=== PATIENT | male | born 1950 | race Caucasian/White ===

== ENCOUNTER 2018-12-31 08:34 | Outpatient (CLI) | payer BC ==
[2018-12-31 09:14] LABS: Estimated GFR-MDRD - POC Greater than 90
[2018-12-31] MEDS ORDERED: Gadobenate Dimeglumine 529 MG/1 ML (20ML VIAL) ONE (11:43)
--- NOTE | 2018-12-31 12:35 | MRI ---
PROSTATE MRI WITHOUT AND WITH CONTRAST: COMPARISON: None. HISTORY: Prostate cancer status post biopsy 1 year ago. TECHNIQUE: Multiplanar, multisequence MR images were obtained of the prostate without and with IV contrast. FINDINGS: There is moderate hypertrophy of the central gland consistent with BPH. No low T2 signal lesion is s een within the prostate. There may be a small central defect in the prostate which could be from gilda or transurethral resection of the prostate. No restricted diffusion or low signal is seen on the ADC map within the peripheral zone of the prosta te. The seminal vesicles are intact. Neurovascular bundles are intact. No pelvic adenopathy is see n. No marrow signal abnormality is present. IMPRESSION: PIRADS category 2 - low likelihood that a clinically significant cancer is present. POS: NIDHI
== END 2018-12-31 08:35 | disposition home or self-care (01) ==
LOC: TBSIIMAG 08:34
PROVIDERS: ATTEND Urology
DX: C61 Malignant neoplasm of prostate (principal)
CPT/HCPCS: 72197; 82565; A9577

== ENCOUNTER 2023-05-11 22:37 | Emergency (ER) | payer BC ==
[2023-05-11 23:09] LABS: #Basophils 0.1 thou/uL (0.0-0.2); #Eosinphils 0.6 thou/uL (0.0-0.7); #Monocytes 0.9 thou/uL (0.11-0.59); #Neutrophils 4.5 thou/uL (1.40-6.50); %Basophils 0.7 % (0.0-1.0); %Eosinophils 7.2 % (0.0-10.0); %Lymphocytes 29.8 % (21.0-51.0); %Monocytes 10.2 % (0.0-10.0); %Neutrophils 51.6 % (42.0-75.0); Hematocrit 47.6 % (42.0-52.0); Hemoglobin 16.2 g/dL (14.0-18.0); Mean Corpuscular Hemoglobin 32.6 pg (27.0-31.0); Mean Corpuscular Volume 95.8 fl (78.0-98.0); Mean Platelet Volume 8.5 fL (7.4-10.4); Platelet Count 203 10x3/uL (130-400); Red Blood Cell (RBC) Count 4.97 mill/uL (4.70-6.10); White Blood Cell (WBC) Count 8.7 10x3/uL (4.8-10.8)
[2023-05-11 23:32] LABS: ALT (SGPT) 27 U/L (8-55); AST (SGOT) 25 U/L (5-34); Albumin 4.3 g/dL (3.4-4.8); Alkaline Phosphatase 67 U/L (40-110); Anion Gap 15 mmol/L (10-20); BUN (Urea Nitrogen) 14 mg/dL (8.4-25.7); Bilirubin, Total 0.4 mg/dL (0.2-1.2); Calc. Creatinine Clearance 0 mL/min (70-130); Calcium 9.8 mg/dL (7.8-10.44); Carbon Dioxide 24 mmol/L (23-31); Chloride 107 mmol/L (98-107); Estimated GFR 91; Glucose 113 mg/dL (83-110); Potassium 4.1 mmol/L (3.5-5.1); Protein, Total 7.3 g/dL (5.8-8.1); Sodium 142 mmol/L (136-145)
[2023-05-12 01:25] LABS: Bacteria/HPF None Seen HPF (None Seen); Bilirubin Negative (Negative); Blood, Urine 1+ (Negative); CAUTI Indications for Culture Pelvic or flank pain; Clarity Clear (Clear); Glucose, Urine (Dipstick) Normal (Negative); Ketone, Urine Negative (Negative); Leukocyte Negative Leu/uL (Negative); Nitrite Negative (Negative); Protein, Urine (Dipstick) Negative (Neg-Trace); Squamous Epithelial None Seen HPF (0-3); Urobilinogen Normal mg/dL (Less than 2); pH, Urine 6.5 (5.0-9.0)
[2023-05-12 01:26] LABS: Urine Culture Reflex No No
== END 2023-05-12 01:48 | disposition home or self-care (01) ==
LOC: ERS 22:37
DX: N13.2 Hydronephrosis with renal and ureteral calculous obstruction (principal); I10 Essential (primary) hypertension
CPT/HCPCS: 36415; 74176; 80053; 81001; 85025

== ENCOUNTER 2023-05-14 09:05 | Outpatient (CLI) | payer BC ==
[2023-05-14 10:38] LABS: INR-International Normal Ratio 1.2; PTT 29.2 sec (22.0-33.0); Prothrombin Time 12.5 sec (9.5-12.1)
[2023-05-14 12:21] LABS: Platelet Count 206 thou/uL (130-400)
[2023-05-14 12:58] LABS: EPI 138 sec (67-192)
== END 2023-05-14 09:06 | disposition home or self-care (01) ==
LOC: LABBT 09:05
PROVIDERS: ATTEND Urology
DX: Z01.812 Encounter for preprocedural laboratory examination (principal); N20.0 Calculus of kidney
CPT/HCPCS: 85576; 85610; 85730

== ENCOUNTER 2023-05-20 11:28 | Inpatient (IN) | payer MEDICARE, BC ==
[2023-05-20] MEDS ORDERED: fentaNYL PF 100 MCG/2 ML SYRINGE ONE ×2 (13:08→15:45)
[2023-05-20] MEDS ORDERED: Sodium Chloride 0.9% 100 ML ONE (13:16)
[2023-05-20] MEDS ORDERED: CEFAZOLIN 2 GM VIAL ONE (13:16)
[2023-05-20] MEDS ORDERED: Ondansetron PF 4 MG/2 ML Vial ONE (13:37)
[2023-05-20] MEDS ORDERED: Lidocaine 1% PF 5 ML VIAL ONE (13:37)
[2023-05-20] MEDS ORDERED: Dexamethasone 20 MG/5 ML VIAL ONE (13:37)
[2023-05-20] MEDS ORDERED: PROPOFOL 200 MG/20 ML VIAL ONE (13:37)
[2023-05-20] MEDS ORDERED: Iopamidol 30 ML ONE (14:36)
[2023-05-20] MEDS ORDERED: fentaNYL 50 mcg/mL 1 mL Vial ONE ×6 (15:23→19:38)
[2023-05-20] MEDS ORDERED: Hyoscyamine SL 0.125 MG TAB ONE (17:02)
[2023-05-20 17:32] LABS: #Eosinphils 0.1 thou/uL (0.0-0.7); #Monocytes 0.3 thou/uL (0.11-0.59); #Neutrophils 5.7 thou/uL (1.40-6.50); %Basophils 0.5 % (0.0-1.0); %Eosinophils 0.9 % (0.0-10.0); %Lymphocytes 17.5 % (21.0-51.0); %Monocytes 3.8 % (0.0-10.0); %Neutrophils 76.6 % (42.0-75.0); Hematocrit 45.1 % (42.0-52.0); Hemoglobin 15.2 g/dL (14.0-18.0); Mean Corpuscular HGB CONC 33.7 g/dL (32.0-36.0); Mean Corpuscular Hemoglobin 32.5 pg (27.0-31.0); Mean Corpuscular Volume 96.6 fl (78.0-98.0); Mean Platelet Volume 8.4 fL (7.4-10.4); Platelet Count 175 10x3/uL (130-400); RBC Distribution Width 11.9 % (11.5-14.5); Red Blood Cell (RBC) Count 4.67 mill/uL (4.70-6.10); White Blood Cell (WBC) Count 7.4 10x3/uL (4.8-10.8)
[2023-05-20 17:49] LABS: INR-International Normal Ratio 1.3; PTT 27.1 sec (22.9-36.1); Prothrombin Time 16.7 sec (12.0-14.7)
[2023-05-20] MEDS ORDERED: D5 1/2 NS w/20 mEq KCL 1,000 ML ONE (18:47)
[2023-05-20 20:52] VITALS: BMI 26.9
[2023-05-20] MEDS ORDERED: Losartan 25 MG TAB PO SCH (21:00)
[2023-05-20] MEDS: Docusate 100 MG CAP PO SCH (21:03)
[2023-05-20] MEDS: Hyoscyamine SL 0.125 MG TAB SL PRN (21:04)
[2023-05-20] MEDS: Acetaminophen 500 MG TAB PO PRN (21:04)
[2023-05-20] MEDS: D5 1/2 NS w/20 mEq KCL 1,000 ML IV SCH (21:07)
[2023-05-20] MEDS: CEFAZOLIN 1 GM in Sodium Chloride 0.9% 100 ML IVPB SCH (21:13)
[2023-05-20] MEDS: Morphine 4 MG/ML VIAL SLOW IVP PRN (22:34)
[2023-05-21] MEDS: D5 1/2 NS w/20 mEq KCL 1,000 ML IV SCH ×2 (04:42→14:04)
[2023-05-21] MEDS: CEFAZOLIN 1 GM in Sodium Chloride 0.9% 100 ML IVPB SCH ×3 (04:44→20:51)
[2023-05-21] MEDS: Acetaminophen 500 MG TAB PO PRN ×2 (04:53→20:51)
[2023-05-21] MEDS: Morphine 4 MG/ML VIAL SLOW IVP PRN (04:55)
[2023-05-21] MEDS ORDERED: Losartan 25 MG TAB PO SCH (08:17)
[2023-05-21 08:28] LABS: #Monocytes 1.1 thou/uL (0.11-0.59); #Neutrophils 13.8 thou/uL (1.40-6.50); %Basophils 0.1 % (0.0-1.0); %Lymphocytes 6.4 % (21.0-51.0); %Neutrophils 85.7 % (42.0-75.0); Hematocrit 37.2 % (42.0-52.0); Hemoglobin 12.6 g/dL (14.0-18.0); Mean Corpuscular HGB CONC 33.9 g/dL (32.0-36.0); Mean Corpuscular Volume 97.4 fl (78.0-98.0); Mean Platelet Volume 8.7 fL (7.4-10.4); Platelet Count 183 10x3/uL (130-400); RBC Distribution Width 11.9 % (11.5-14.5); Red Blood Cell (RBC) Count 3.82 mill/uL (4.70-6.10); White Blood Cell (WBC) Count 16.1 10x3/uL (4.8-10.8)
[2023-05-21 08:55] LABS: Anion Gap 11 mmol/L (10-20); BUN (Urea Nitrogen) 15 mg/dL (8.4-25.7); Calc. Creatinine Clearance 96 mL/min (70-130); Calcium 8.5 mg/dL (7.8-10.44); Carbon Dioxide 25 mmol/L (23-31); Chloride 107 mmol/L (98-107); Estimated GFR 92; Glucose 140 mg/dL (83-110); Magnesium 1.9 mg/dL (1.6-2.6); Potassium 4.8 mmol/L (3.5-5.1); Sodium 138 mmol/L (136-145)
[2023-05-21] MEDS: Docusate 100 MG CAP PO SCH ×2 (09:10→20:51)
[2023-05-21] MEDS: Loratadine 10 MG TAB PO SCH (09:10)
[2023-05-21] MEDS: Finasteride 5 MG TAB PO SCH (09:10)
[2023-05-21 15:45] LABS: Hemoglobin 12.9 g/dL (14.0-18.0)
[2023-05-22] MEDS: D5 1/2 NS w/20 mEq KCL 1,000 ML IV SCH (02:06)
[2023-05-22] MEDS: Morphine 4 MG/ML VIAL SLOW IVP PRN (03:47)
[2023-05-22 05:56] LABS: Hematocrit 36.3 % (42.0-52.0); Mean Corpuscular HGB CONC 33.1 g/dL (32.0-36.0); Mean Corpuscular Hemoglobin 32.3 pg (27.0-31.0); Mean Corpuscular Volume 97.6 fl (78.0-98.0); Mean Platelet Volume 8.9 fL (7.4-10.4); Platelet Count 171 10x3/uL (130-400); Red Blood Cell (RBC) Count 3.72 mill/uL (4.70-6.10); White Blood Cell (WBC) Count 13.1 10x3/uL (4.8-10.8)
[2023-05-22] MEDS: CEFAZOLIN 1 GM in Sodium Chloride 0.9% 100 ML IVPB SCH ×2 (06:19→14:20)
[2023-05-22] MEDS: Hyoscyamine SL 0.125 MG TAB SL PRN (06:23)
[2023-05-22] MEDS: Loratadine 10 MG TAB PO SCH (09:19)
[2023-05-22] MEDS: Docusate 100 MG CAP PO SCH ×2 (09:19→21:24)
[2023-05-22] MEDS: Finasteride 5 MG TAB PO SCH (09:19)
[2023-05-22] MEDS: Losartan 25 MG TAB PO SCH (09:21)
[2023-05-22 09:49] LABS: Anion Gap 13 mmol/L (10-20); BUN (Urea Nitrogen) 13 mg/dL (8.4-25.7); Calc. Creatinine Clearance 98 mL/min (70-130); Calcium 8.9 mg/dL (7.8-10.44); Carbon Dioxide 24 mmol/L (23-31); Chloride 108 mmol/L (98-107); Estimated GFR 92; Glucose 130 mg/dL (83-110); Potassium 4.4 mmol/L (3.5-5.1); Sodium 141 mmol/L (136-145)
[2023-05-22] MEDS ORDERED: Acetaminophen/Codeine 30-300mg Tablet PO PRN (13:05)
[2023-05-22] MEDS ORDERED: Iopamidol-370 76% 500 ML MDV (1 ML CHARGE) ONE (13:21)
[2023-05-22 15:06] LABS: Platelet Count 177 thou/uL (130-400)
[2023-05-22 15:27] LABS: EPI 134 sec (67-192)
[2023-05-22] MEDS: Acetaminophen/Codeine 30-300mg Tablet PO PRN (21:24)
[2023-05-23] MEDS: Acetaminophen/Codeine 30-300mg Tablet PO PRN ×3 (03:37→21:12)
[2023-05-23] MEDS: LevoFLOXacin 500 MG TAB PO SCH (05:31)
[2023-05-23 05:32] LABS: #Eosinphils 0.2 thou/uL (0.0-0.7); #Monocytes 0.9 thou/uL (0.11-0.59); %Basophils 0.4 % (0.0-1.0); %Eosinophils 2.2 % (0.0-10.0); %Lymphocytes 18.3 % (21.0-51.0); %Monocytes 9.3 % (0.0-10.0); %Neutrophils 69.2 % (42.0-75.0); Hematocrit 34.9 % (42.0-52.0); Hemoglobin 11.8 g/dL (14.0-18.0); Mean Corpuscular HGB CONC 33.8 g/dL (32.0-36.0); Mean Corpuscular Hemoglobin 32.5 pg (27.0-31.0); Mean Corpuscular Volume 96.1 fl (78.0-98.0); Mean Platelet Volume 8.8 fL (7.4-10.4); Platelet Count 176 10x3/uL (130-400); RBC Distribution Width 11.9 % (11.5-14.5); Red Blood Cell (RBC) Count 3.63 mill/uL (4.70-6.10); White Blood Cell (WBC) Count 10.1 10x3/uL (4.8-10.8)
[2023-05-23 06:02] LABS: ALT (SGPT) 15 U/L (8-55); AST (SGOT) 17 U/L (5-34); Albumin 3.8 g/dL (3.4-4.8); Alkaline Phosphatase 48 U/L (40-110); Anion Gap 12 mmol/L (10-20); BUN (Urea Nitrogen) 14 mg/dL (8.4-25.7); Bilirubin, Total 0.8 mg/dL (0.2-1.2); Calc. Creatinine Clearance 107 mL/min (70-130); Calcium 8.9 mg/dL (7.8-10.44); Carbon Dioxide 25 mmol/L (23-31); Chloride 109 mmol/L (98-107); Estimated GFR 95; Globulin 2.1 g/dL (2.4-3.5); Glucose 95 mg/dL (83-110); Potassium 3.9 mmol/L (3.5-5.1); Protein, Total 5.9 g/dL (5.8-8.1); Sodium 142 mmol/L (136-145)
[2023-05-23] MEDS: Docusate 100 MG CAP PO SCH ×2 (09:20→21:12)
[2023-05-23] MEDS: Loratadine 10 MG TAB PO SCH (09:20)
[2023-05-23] MEDS: Finasteride 5 MG TAB PO SCH (09:20)
[2023-05-23] MEDS: Losartan 25 MG TAB PO SCH (09:21)
[2023-05-23] MEDS ORDERED: Docusate 100 MG CAP PO PRN (11:04)
[2023-05-23] MEDS ORDERED: Polyethylene Glycol 3350 17 GM Packet PO PRN (11:04)
[2023-05-24] MEDS: LevoFLOXacin 500 MG TAB PO SCH (05:37)
[2023-05-24] MEDS: Acetaminophen/Codeine 30-300mg Tablet PO PRN ×3 (05:41→20:59)
[2023-05-24 06:31] LABS: Hematocrit 34.7 % (42.0-52.0); Hemoglobin 11.6 g/dL (14.0-18.0); Mean Corpuscular HGB CONC 33.4 g/dL (32.0-36.0); Mean Corpuscular Hemoglobin 32.2 pg (27.0-31.0); Mean Corpuscular Volume 96.4 fl (78.0-98.0); Mean Platelet Volume 8.9 fL (7.4-10.4); Platelet Count 186 10x3/uL (130-400); RBC Distribution Width 11.9 % (11.5-14.5); White Blood Cell (WBC) Count 10.3 10x3/uL (4.8-10.8)
[2023-05-24] MEDS: Docusate 100 MG CAP PO SCH ×2 (08:24→20:55)
[2023-05-24] MEDS: Finasteride 5 MG TAB PO SCH (08:24)
[2023-05-24] MEDS: Loratadine 10 MG TAB PO SCH (08:24)
[2023-05-24] MEDS: Losartan 25 MG TAB PO SCH (08:55)
[2023-05-25] MEDS: LevoFLOXacin 500 MG TAB PO SCH (06:06)
[2023-05-25] MEDS: Losartan 25 MG TAB PO SCH (08:44)
[2023-05-25] MEDS: Finasteride 5 MG TAB PO SCH (08:44)
[2023-05-25] MEDS: Docusate 100 MG CAP PO SCH (08:44)
[2023-05-25] MEDS: Loratadine 10 MG TAB PO SCH (08:44)
[2023-05-25 12:47] VITALS: TEMP 98.5
[2023-05-25 16:09] VITALS: BP 120/70
== END 2023-05-25 16:44 | disposition home or self-care (01) | DRG 660 ==
LOC: SDC 11:28 → SURG B 16:38
PROVIDERS: ADMIT Urology; ATTEND Urology
PROC: 0TF7XZZ Fragmentation in Left Ureter, External Approach (ICD-10-PCS; principal; 2023-05-20)
PROC: 0T778DZ Dilation of Left Ureter with Intraluminal Device, Via Natural or Artificial Opening Endoscopic (ICD-10-PCS; 2023-05-20)
PROC: 0V508ZZ Destruction of Prostate, Via Natural or Artificial Opening Endoscopic (ICD-10-PCS; 2023-05-20)
DX: N20.2 Calculus of kidney with calculus of ureter (principal); N99.61 Intraoperative hemorrhage and hematoma of a genitourinary system organ or structure complicating a genitourinary system procedure; N40.0 Benign prostatic hyperplasia without lower urinary tract symptoms; I10 Essential (primary) hypertension; R31.0 Gross hematuria; K59.00 Constipation, unspecified; Z98.890 Other specified postprocedural states
CPT/HCPCS: 36415; 74018; 74178; 80048; 80053; 83735; 85025; 85027; 85240; 85245; 85576; 85610; 85730; C1769; C1874; C2617; J0690; J1100; J2270; J2405; J2704; J3010; J3480; J3490; Q9967